=== PATIENT | female | born 1980 | race Two or more races ===

== ENCOUNTER 2017-01-14 14:54 | Emergency (ER) | payer OTHER ==
[~2017-01-14] VITALS: Ht 162.6 cm; Wt 62.1 kg
[~2017-01-14 14:54] MED LIST: DOCU-27 PO; FERR325T72 PO; IBUP-1060 PO; PREN1TAB58 PO
[2017-01-14 15:10] VITALS: BP 100/57
[2017-01-14] MEDS ORDERED: AMOX875T PO (15:44)
[2017-01-14] MEDS ORDERED: TOBR5DRO6 OD (15:44)
[2017-01-14] MEDS ORDERED: LIDO20SO PO (15:44)
--- NOTE | 2017-01-14 15:44 | PHYS DOC ---
Past Medical History Past Medical History: No Pertinent History Past Surgical History: Appendectomy Alcohol Use: Rarely Drug Use: None Adult General Chief Complaint Chief Complaint: EYE PROBLEMS HPI HPI Patient is a 36 year old female who presents with right eye redness for 4 days. Patient is also complaining of a sore throat and bilateral ear pain for 2 days. Patient denies any fever but states she has chills. Review of Systems Review of Systems Constitutional: chills [] Eyes: Right eye redness HENT: Sore throat and bilateral ear pain Respiratory: Denies cough or shortness of breath [] Cardiovascular: No additional information not addressed in HPI [] GI: Denies abdominal pain, nausea, vomiting, bloody stools or diarrhea [] : Denies dysuria or hematuria [] Musculoskeletal: Denies back pain or joint pain [] Integument: Denies rash or skin lesions [] Neurologic: Denies headache, focal weakness or sensory changes [] Endocrine: Denies polyuria or polydipsia [] Allergies Allergies Allergies Coded Allergies Type Severity Reaction Last Updated Verified No Known Drug Allergies 01/30/15 No Physical Exam Physical Exam Constitutional: Well developed, well nourished, no acute distress, non-toxic appearance. [] HENT: Normocephalic, atraumatic, bilateral external ears normal, oropharynx moist, no oral exudates, nose normal. [] Bilateral TM are moderately injected with small amount of cloudy fluid. Eyes: PERRLA, EOMI, right conjunctiva is moderately injected. [] Neck: Normal range of motion, no tenderness, supple, no stridor. [] Cardiovascular:Heart rate regular rhythm, no murmur [] Lungs & Thorax: Bilateral breath sounds clear to auscultation [] Abdomen: Bowel sounds normal, soft, no tenderness, no masses, no pulsatile masses. [] Skin: Warm, dry, no erythema, no rash. [] Back: No tenderness, no CVA tenderness. [] Extremities: No tenderness, no cyanosis, no clubbing, ROM intact, no edema. [] Neurologic: Alert and oriented X 3, normal motor function, normal sensory function, no focal deficits noted. [] Psychologic: Affect normal, judgement normal, mood normal. [] Current Patient Data Vital Signs Vital Signs Date Time Temp Pulse Resp B/P (MAP) Pulse Ox O2 Delivery O2 Flow Rate FiO2 01/14/17 15:10 99.6 82 18 100 Room Air 99.6 EKG EKG [] Radiology/Procedures Radiology/Procedures [] Course & Med Decision Making Course & Med Decision Making Pertinent Labs and Imaging studies reviewed. (See chart for details) Patient has otitis media bilaterally, pharyngitis, and right bacterial conjunctivitis. Discharged with amoxicillin for 10 days, lidocaine viscous, Zyrtec, and tobramycin. Follow-up with her own PCP in 1-2 weeks. Provided instructions to maintain good hand hygiene. Instructed patient to return to the ED at any point symptoms worsen. Dragon Disclaimer Dragon Disclaimer This electronic medical record was generated, in whole or in part, using a voice recognition dictation system. Departure Departure Impression: Primary Impression: Bacterial conjunctivitis of right eye Additional Impressions: Otitis media Pharyngitis Disposition: 01 HOME, SELF-CARE Condition: STABLE Referrals: MAYTE CASTAÑEDA MD (PCP) Follow-up with your own doctor in 1-2 weeks Patient Instructions: Bacterial Conjunctivitis, Otitis Media, Adult, Viral and Bacterial Pharyngitis Additional Instructions: You were seen for an ear infection, sore throat and pinkeye to the right eye. Take the prescribed medicines as ordered. Follow-up with your own doctor in 1-2 weeks as needed. Maintain good hand hygiene. Scripts Lidocaine Hcl (LIDOCAINE HCL VISCOUS) 20 Mg/1 Ml Solution 5 ML PO TID, #100 ML Prov: VINAY KYLE APRN 01/14/17 Tobramycin (TOBRAMYCIN) 5 Ml Drops 1 DROP OD Q4HRS W/A, #5 ML Prov: VINAY KYLE APRN 01/14/17 Amoxicillin (AMOXICILLIN) 875 Mg Tablet 1 TAB PO BID, #20 TAB Prov: VINAY KYLE APRN 01/14/17 Problem Qualifiers Additional Impressions: Otitis media Otitis media type: other nonsuppurative Laterality: bilateral Chronicity: acute Recurrence: not specified as recurrent Qualified Codes: H65.193 - Other acute nonsuppurative otitis media, bilateral Pharyngitis Pharyngitis/tonsillitis etiology: unspecified etiology Qualified Codes: J02.9 - Acute pharyngitis, unspecified VINAY KYLE APRN Jan 14, 2017 15:44
== END 2017-01-14 16:00 | disposition home or self-care (01) ==
LOC: ER 14:54
DX: B99.9 Unspecified infectious disease (principal); H10.89 Other conjunctivitis; H65.193 Other acute nonsuppurative otitis media, bilateral; J02.9 Acute pharyngitis, unspecified; Z90.49 Acquired absence of other specified parts of digestive tract
CPT/HCPCS: 99283

== ENCOUNTER → 2017-12-09 | Outpatient (CLI) | payer OTHER | END | disposition home or self-care (01) | LOC: US 14:27 | DX: Z34.92 Encounter for supervision of normal pregnancy, unspecified, second trimester (principal); Z3A.20 20 weeks gestation of pregnancy | CPT/HCPCS: 76805 ==

== ENCOUNTER 2018-03-18 16:46 | Observation (INO) | payer OTHER ==
[2018-03-18 17:47] LABS: AMNIO PT NEGATIVE; NEG OBC AMNIO NEG; POS OBC AMNIO POS
[2018-03-18 19:17] LABS: BILIRUBIN,URINE NEGATIVE (NEG); CLARITY,URINE CLEAR; COLOR,URINE YELLOW; GLUCOSE,URINE NEGATIVE (NEG); NITRITE,URINE NEGATIVE (NEG); PROTEIN,URINE NEGATIVE (NEG-TRACE); UROBILINOGEN,URINE 0.2 mg/dL (0.2 mg/dL)
[2018-03-18 19:26] LABS: BACTERIA,URINE FEW /HPF (0-FEW); RBC,URINE 0 /HPF (0-2); SQUAMOUS EPITHELIAL CELL,UR MOD /LPF
== END 2018-03-18 20:05 | disposition home or self-care (01) ==
LOC: 3 SO LND 16:46
DX: O42.913 Preterm premature rupture of membranes, unspecified as to length of time between rupture and onset of labor, third trimester (principal); O26.893 Other specified pregnancy related conditions, third trimester; R10.2 Pelvic and perineal pain; L29.0 Pruritus ani; Z3A.33 33 weeks gestation of pregnancy
CPT/HCPCS: 36415; 81001; 84112; G0378; G0379

== ENCOUNTER → 2018-03-27 | Outpatient (CLI) | payer OTHER | END | disposition home or self-care (01) | LOC: US 15:49 | DX: O41.03X0 Oligohydramnios, third trimester, not applicable or unspecified (principal); Z3A.34 34 weeks gestation of pregnancy; Z90.49 Acquired absence of other specified parts of digestive tract | CPT/HCPCS: 76805 ==

== ENCOUNTER 2018-04-13 16:57 | Observation (INO) | payer OTHER ==
[~2018-04-13 16:57] MED LIST changes: +AMOX875T PO; +DOCU-109 PO; -DOCU-27 PO; +LIDO20SO PO; +TOBR5DRO6 OD
[2018-04-13 18:29] LABS: AMNIO PT NEGATIVE
--- NOTE | 2018-04-13 18:29 | RAD ---
Indication: History of low JOSE ALFREDO. Possible leaking of fluid. TECHNIQUE: Ultrasound more than 30 2014 weeks. COMPARISON: Previous study from 03/27/2018 FINDINGS: The cervix measures 4.2 cm in length and is closed. Single intrauterine seen in cephalic position. The biparietal diameter measures 8.93 cm corresponding to gestation age of 36 weeks 1 day. Head circumference measures 32.29 cm corresponding to gestation age of 36 weeks 3 days. Amniotic fluid index measures 8.2 cm, previously 7.7 cm. Placenta is anterior in position. Abdominal circumference measures 33.5 cm corresponding to gestation age of 37 weeks 3 days. Cardiac activity is seen at the rate of 140 bpm. Femoral length measures 7.19 cm corresponding to gestation age of 36 weeks 6 days. Kidneys are seen. Bladder seen. IMPRESSION: Single intrauterine with gestation age of 36 weeks 6 days. Amniotic fluid index 8.2 cm, previously 7.7 cm. Electronically signed by: Lazaro Boyer DO (04/13/2018 6:26 PM) [facility]
== END 2018-04-13 18:50 | disposition home or self-care (01) ==
LOC: 3 SO LND 16:57
PROVIDERS: ADMIT Family Medicine; ATTEND Family Medicine
DX: O26.893 Other specified pregnancy related conditions, third trimester (principal); N89.8 Other specified noninflammatory disorders of vagina; Z3A.37 37 weeks gestation of pregnancy
CPT/HCPCS: 36415; 76805; 84112; G0378; G0379

== ENCOUNTER 2018-04-29 13:04 | Emergency (ER) | payer OTHER ==
[~2018-04-29] VITALS: Ht 162.6 cm; Wt 68.0 kg
[~2018-04-29 13:04] MED LIST changes: +HYDR-2762 PO
[2018-04-29 14:20] VITALS: BP 107/65
--- NOTE | 2018-04-29 14:23 | PHYS DOC ---
Past Medical History Past Medical History: No Pertinent History Past Surgical History: Appendectomy Alcohol Use: Rarely Drug Use: None Adult General Chief Complaint Chief Complaint: LOWER EXT PAIN [facility] HPI Patient is a 37 year old female who presents with lower extremity swelling to the left leg. The patient is 2 days . She states that she felt like both of her legs were swollen yesterday but today she only has swelling to her left lower leg with discomfort. She denies shortness of breath, cough or chest pain. She states that it was a normal vaginal delivery. She states that she did have bilateral lower extremity swelling towards the end of her . The patient denies any clotting disorders. Review of Systems Review of Systems Constitutional: Denies fever or chills [] Eyes: Denies change in visual acuity, redness, or eye pain [] HENT: Denies nasal congestion or sore throat [] Respiratory: Denies cough or shortness of breath [] Cardiovascular: No additional information not addressed in HPI [] GI: Denies abdominal pain, nausea, vomiting, bloody stools or diarrhea [] : Denies dysuria or hematuria [] Musculoskeletal: See history of present illness Integument: Denies rash or skin lesions [] Neurologic: Denies headache, focal weakness or sensory changes [] Endocrine: Denies polyuria or polydipsia [] All other systems were reviewed and found to be within normal limits, except as documented in this note. Allergies Allergies Allergies Coded Allergies Type Severity Reaction Last Updated Verified No Known Drug Allergies 01/30/15 No Physical Exam Physical Exam Constitutional: Well developed, well nourished, no acute distress, non-toxic appearance. [] Neck: Normal range of motion, no tenderness, supple, no stridor. [] Cardiovascular:Heart rate regular rhythm, no murmur [] Lungs & Thorax: Bilateral breath sounds clear to auscultation [] Abdomen: Bowel sounds normal, soft, no tenderness, no masses, no pulsatile masses. [] Skin: Warm, dry, no erythema, no rash. [] Back: No tenderness, no CVA tenderness. [] Extremities: tenderness to left lower extremity, Homans sign negative, no cyanosis, no clubbing, ROM intact, 2+ pitting edema. [] Neurologic: Alert and oriented X 3, normal motor function, normal sensory function, no focal deficits noted. [] Psychologic: Affect normal, judgement normal, mood normal. [] Current Patient Data Vital Signs Vital Signs Date Time Temp Pulse Resp B/P (MAP) Pulse Ox O2 Delivery O2 Flow Rate FiO2 04/29/18 14:20 98.2 83 16 107/65 (79) 98 Room Air 98.2 Lab Values Laboratory Tests Test 04/29/18 14:35 04/29/18 14:40 Urine Collection Type Unknown Urine Color Yellow Urine Clarity Clear Urine pH 5.0 Urine Specific [place] 1.015 Urine Protein Negative mg/dL (NEG-TRACE) Urine Glucose (UA) Negative mg/dL (NEG) Urine Ketones (Stick) Negative mg/dL (NEG) Urine Blood Large (NEG) Urine Nitrite Negative (NEG) Urine Bilirubin Negative (NEG) Urine Urobilinogen Dipstick 0.2 mg/dL (0.2 mg/dL) Urine Leukocyte Esterase Small (NEG) Urine RBC 20-40 /HPF (0-2) Urine WBC 5-10 /HPF (0-4) Urine Squamous Epithelial Cells Mod /LPF Urine Transitional Epithelial Cells Few /LPF Urine Bacteria 0 /HPF (0-FEW) Urine Mucus Slight /LPF White Blood Count 7.6 x10^3/uL (4.0-11.0) Red Blood Count 3.71 x10^6/uL (3.50-5.40) Hemoglobin 11.1 g/dL (12.0-15.5) L Hematocrit 33.1 % (36.0-47.0) L Mean Corpuscular Volume 89 fL (79-100) Mean Corpuscular Hemoglobin 30 pg (25-35) Mean Corpuscular Hemoglobin Concent 33 g/dL (31-37) Red Cell Distribution Width 20.1 % (11.5-14.5) H Platelet Count 336 x10^3/uL (140-400) Neutrophils (%) (Auto) 67 % (31-73) Lymphocytes (%) (Auto) 21 % (24-48) L Monocytes (%) (Auto) 7 % (0-9) Eosinophils (%) (Auto) 5 % (0-3) H Basophils (%) (Auto) 1 % (0-3) Neutrophils # (Auto) 5.1 x10^3uL (1.8-7.7) Lymphocytes # (Auto) 1.6 x10^3/uL (1.0-4.8) Monocytes # (Auto) 0.5 x10^3/uL (0.0-1.1) Eosinophils # (Auto) 0.4 x10^3/uL (0.0-0.7) Basophils # (Auto) 0.0 x10^3/uL (0.0-0.2) Platelet Estimate Adequate (ADEQUATE) Polychromasia Slight Anisocytosis Mod Sodium Level 142 mmol/L (136-145) Potassium Level 3.8 mmol/L (3.5-5.1) Chloride Level 106 mmol/L (98-107) Carbon Dioxide Level 24 mmol/L (21-32) Anion Gap 12 (6-14) Blood Urea Nitrogen 11 mg/dL (7-20) Creatinine 0.7 mg/dL (0.6-1.0) Estimated GFR (Cockcroft-Gault) 93.6 BUN/Creatinine Ratio 16 (6-20) Glucose Level 113 mg/dL (70-99) H Calcium Level 9.2 mg/dL (8.5-10.1) Total Bilirubin 0.1 mg/dL (0.2-1.0) L Aspartate Amino Transferase (AST) 25 U/L (15-37) Alanine Aminotransferase (ALT) 61 U/L (14-59) H Alkaline Phosphatase 99 U/L (46-116) Total Protein 7.3 g/dL (6.4-8.2) Albumin 2.6 g/dL (3.4-5.0) L Albumin/Globulin Ratio 0.6 (1.0-1.7) L Laboratory Tests 04/29/18 14:40 Laboratory Tests 04/29/18 14:40 EKG EKG [] Radiology/Procedures Radiology/Procedures []PATIENT: LISBETH MCCORMACKACCOUNT: [id number]#: [id number] : 1980 LOCATION: ER AGE: 37 SEX: F EXAM STATUS: REG ER ORD. PHYSICIAN: SHAHEEN HICKS APRN REASON: pain, swelling, day 2 PROCEDURE: VENOUS LOWER EXTREMITY LEFT Left lower extremity venous ultrasound, 04/29/2018 : History: Left leg pain Duplex evaluation including grayscale, color flow and spectral Doppler analysis was performed. The femoral and popliteal veins show no filling defects to suggest DVT. The visualized calf veins are unremarkable. IMPRESSION: There is no sonographic evidence of deep vein thrombosis in the left lower extremity Electronically signed by: Celestine Brown MD (04/29/2018 4:20 PM) [facility] DICTATED and SIGNED BY: CELESTINE BROWN MD DATE: 04/29/18 6191 Course & Med Decision Making Course & Med Decision Making Pertinent Labs and Imaging studies reviewed. (See chart for details) []The patient is negative for DVT. She is to follow-up with her ASSOCIATE CHIEF NURSE for her scheduled examination. She is in agreement with this plan. Dragon Disclaimer Dragon Disclaimer This electronic medical record was generated, in whole or in part, using a voice recognition dictation system. Departure Departure Impression: Primary Impression: Edema of left lower extremity Disposition: 01 HOME, SELF-CARE Condition: STABLE Referrals: MAYTE CASTAÑEDA MD (PCP) Patient Instructions: Peripheral Edema Additional Instructions: Follow-up with your primary care provider for recheck in 3 days. If worsening please return to the emergency department. SHAHEEN HICKS APRN Apr 29, 2018 14:23
[2018-04-29 14:43] LABS: BILIRUBIN,URINE NEGATIVE (NEG); CLARITY,URINE CLEAR; COLOR,URINE YELLOW; NITRITE,URINE NEGATIVE (NEG); PROTEIN,URINE NEGATIVE (NEG-TRACE); UROBILINOGEN,URINE 0.2 mg/dL (0.2 mg/dL)
[2018-04-29 14:47] LABS: BASO % 1 % (0-3); EOS # 0.4 x10^3/uL (0.0-0.7); EOS % 5 % (0-3); HEMATOCRIT 33.1 % (36.0-47.0); HEMOGLOBIN 11.1 g/dL (12.0-15.5); LYMPH # 1.6 x10^3/uL (1.0-4.8); LYMPH % 21 % (24-48); MEAN CORPUSCULAR HEMOGLOBIN 30 pg (25-35); MEAN CORPUSCULAR HGB CONC 33 g/dL (31-37); MEAN CORPUSCULAR VOLUME 89 fL (79-100); MONO # 0.5 x10^3/uL (0.0-1.1); MONO % 7 % (0-9); NEUT # 5.1 x10^3uL (1.8-7.7); NEUT % 67 % (31-73); PLATELET COUNT 336 x10^3/uL (140-400); RED BLOOD COUNT 3.71 x10^6/uL (3.50-5.40); RED CELL DISTRIBUTION WIDTH 20.1 % (11.5-14.5); WHITE BLOOD COUNT 7.6 x10^3/uL (4.0-11.0)
[2018-04-29 14:55] LABS: CALCIUM 9.2 mg/dL (8.5-10.1); CREATININE 0.7 mg/dL (0.6-1.0); GFR 93.6; POTASSIUM 3.8 mmol/L (3.5-5.1)
[2018-04-29 14:58] LABS: BACTERIA,URINE 0 /HPF (0-FEW); RBC,URINE 20-40 /HPF (0-2); SQUAMOUS EPITHELIAL CELL,UR MOD /LPF
[2018-04-29 15:00] LABS: ALBUMIN 2.6 g/dL (3.4-5.0); ALBUMIN/GLOBULIN RATIO 0.6 (1.0-1.7); TOTAL BILIRUBIN 0.1 mg/dL (0.2-1.0); TOTAL PROTEIN 7.3 g/dL (6.4-8.2)
--- NOTE | 2018-04-29 16:23 | RAD ---
Left lower extremity venous ultrasound, 04/29/2018 : History: Left leg pain Duplex evaluation including grayscale, color flow and spectral Doppler analysis was performed. The femoral and popliteal veins show no filling defects to suggest DVT. The visualized calf veins are unremarkable. IMPRESSION: There is no sonographic evidence of deep vein thrombosis in the left lower extremity Electronically signed by: Celestine Brown MD (04/29/2018 4:20 PM) [facility]
[2018-04-29 17:17] LABS: ANISOCYTOSIS MOD; PLT ESTIMATE ADEQUATE (ADEQUATE); POLYCHROMASIA SLIGHT
== END 2018-04-29 17:32 | disposition home or self-care (01) ==
LOC: ER 13:04
DX: O90.89 Other complications of the puerperium, not elsewhere classified (principal); R60.0 Localized edema; Z90.89 Acquired absence of other organs
CPT/HCPCS: 36415; 80053; 81001; 85025; 87086; 93971; 99285-25